=== PATIENT | male | born 1985 | race Two or more races ===

== ENCOUNTER 2021-08-24 20:12 | Inpatient (IN) | payer OTHER ==
[2021-08-24] MEDS ORDERED: MAG HYDROX/AL HYDROX/SIMETH 30 ML UNIT-DOSE CUP PO PRN (21:56)
[2021-08-24] MEDS ORDERED: MAGNESIUM HYDROX 2400MG/30ML ORAL SUSPENSION 30 ML CUP PO PRN (21:56)
[2021-08-24] MEDS ORDERED: MAGNESIUM CITRATE 300 ML BOTTLE PO PRN (21:56)
[2021-08-24] MEDS ORDERED: MENTHOL/PHENOL 1 EACH UD MM PRN (21:56)
[2021-08-24] MEDS ORDERED: BISMUTH SUBSALICYLATE 524 MG/30 ML PO PRN (21:56)
[2021-08-24] MEDS ORDERED: ACETAMINOPHEN 325 MG TABLET (FP) PO PRN (21:56)
[2021-08-24] MEDS ORDERED: diazePAM 5 MG TABLET PO PRN (21:59)
[2021-08-24 22:08] VITALS: BMI 29.7
[2021-08-24] MEDS ORDERED: diazePAM 5 MG TABLET ONE (22:19)
[2021-08-24] MEDS: diazePAM 5 MG TABLET PO SCH (22:20)
[2021-08-24] MEDS ORDERED: diazePAM 5 MG TABLET PO SCH (23:00)
[2021-08-24] MEDS: MELATONIN 5 MG TABLETS PO SCH (23:06)
[2021-08-24] MEDS: hydrOXYzine PAMOATE 25 MG CAPSULE (FP) PO PRN (23:06)
[2021-08-24] MEDS: THIAMINE HCL 100 MG TABLET (FP) PO SCH (23:07)
[2021-08-25] MEDS: diazePAM 5 MG TABLET PO PRN ×2 (01:43→14:19)
[2021-08-25] MEDS: ONDANSETRON *ODT* 4 MG TABLET SL PRN ×2 (01:44→22:42)
[2021-08-25] MEDS: METHOCARBAMOL 500 MG TABLET PO PRN ×3 (01:44→22:42)
[2021-08-25] MEDS: diazePAM 5 MG TABLET PO SCH ×4 (06:17→22:43)
[2021-08-25] MEDS: hydrOXYzine PAMOATE 25 MG CAPSULE (FP) PO PRN ×3 (06:17→22:39)
[2021-08-25] MEDS: PRENATAL VITAMINS W/ FOLIC ACID TABLET (FP) PO SCH (10:38)
[2021-08-25] MEDS: SERTRALINE HCL 50 MG TABLET (FP) PO SCH (10:39)
[2021-08-25] MEDS: ACETAMINOPHEN 325 MG TABLET (FP) PO PRN (14:14)
[2021-08-25 14:35] LABS: CALCIUM 9.2 mg/dL (8.5-10.1)
[2021-08-25 14:36] LABS: ALBUMIN 3.2 g/dl (3.4-5.0); BLOOD UREA NITROGEN 9.6 mg/dL (7-18); HEMATOCRIT 43.1 % (35.4-49); HEMOGLOBIN 14.9 GM/dL (11.7-16.9); MCH 29.3 pg (25.7-33.7); MCHC 34.6 g/dl (32.0-35.9); MEAN CELL VOLUME 84.8 fl (80-96); MEAN PLT VOLUME 9.2 fl (7.5-11.1); PLATELET COUNT 350 10^3/uL (134-434); RBC 5.08 M/mm3 (4.00-5.60); RDW 14.1 % (11.9-15.9); WHITE BLOOD COUNT 10.8 K/mm3 (4.0-10.0)
[2021-08-25 14:39] LABS: CREATININE 0.9 mg/dL (0.55-1.3)
[2021-08-25 14:41] LABS: BILIRUBIN,TOTAL 1.2 mg/dL (0.2-1); TOT PROT 7.6 g/dl (6.4-8.2)
[2021-08-25] MEDS: cloNIDine HCL 0.1 MG TABLET PO PRN ×2 (18:03→22:41)
[2021-08-25] MEDS: MELATONIN 5 MG TABLETS PO SCH (22:38)
[2021-08-25] MEDS: THIAMINE HCL 100 MG TABLET (FP) PO SCH (22:38)
[2021-08-25] MEDS: QUEtiapine FUMARATE 300 MG TABLET PO SCH (22:42)
[2021-08-26] MEDS ORDERED: diazePAM 5 MG TABLET PO SCH (06:00)
[2021-08-26] MEDS: diazePAM 5 MG TABLET PO SCH ×3 (06:07→22:20)
[2021-08-26] MEDS: METHOCARBAMOL 500 MG TABLET PO PRN ×2 (06:08→17:44)
[2021-08-26] MEDS: hydrOXYzine PAMOATE 25 MG CAPSULE (FP) PO PRN ×2 (06:08→17:44)
[2021-08-26] MEDS: cloNIDine HCL 0.1 MG TABLET PO PRN (10:52)
[2021-08-26] MEDS: diazePAM 5 MG TABLET PO PRN (10:53)
[2021-08-26] MEDS: IBUPROFEN 400 MG TABLET (FP) PO PRN ×2 (10:53→17:44)
[2021-08-26] MEDS: PRENATAL VITAMINS W/ FOLIC ACID TABLET (FP) PO SCH (10:55)
[2021-08-26] MEDS ORDERED: PANTOPRAZOLE 40 MG TABLET PO ONE (10:56)
[2021-08-26] MEDS: SERTRALINE HCL 50 MG TABLET (FP) PO SCH (11:28)
[2021-08-26] MEDS: QUEtiapine FUMARATE 300 MG TABLET PO SCH (22:20)
[2021-08-26] MEDS: MELATONIN 5 MG TABLETS PO SCH (22:20)
[2021-08-26] MEDS: THIAMINE HCL 100 MG TABLET (FP) PO SCH (22:20)
[2021-08-27] MEDS ORDERED: diazePAM 5 MG TABLET PO SCH (06:00)
[2021-08-27] MEDS: hydrOXYzine PAMOATE 25 MG CAPSULE (FP) PO PRN (06:49)
[2021-08-27] MEDS: diazePAM 5 MG TABLET PO SCH ×2 (06:49→17:03)
[2021-08-27] MEDS: diazePAM 5 MG TABLET PO PRN (10:35)
[2021-08-27] MEDS: SERTRALINE HCL 50 MG TABLET (FP) PO SCH (10:36)
[2021-08-27] MEDS: PRENATAL VITAMINS W/ FOLIC ACID TABLET (FP) PO SCH (10:36)
[2021-08-27] MEDS: PANTOPRAZOLE 40 MG TABLET PO SCH (10:36)
[2021-08-27] MEDS: ACETAMINOPHEN 325 MG TABLET (FP) PO PRN (10:37)
[2021-08-27 10:53] LABS: EOS % 3.7 % (0-4.5); HEMATOCRIT 43.2 % (35.4-49); HEMOGLOBIN 14.9 GM/dL (11.7-16.9); LYMPH % 30.1 % (8-40); MCH 29.9 pg (25.7-33.7); MCHC 34.6 g/dl (32.0-35.9); MEAN CELL VOLUME 86.4 fl (80-96); MEAN PLT VOLUME 9.3 fl (7.5-11.1); MONO % 5.5 % (3.8-10.2); NEUT % 59.7 % (42.8-82.8); PLATELET COUNT 291 10^3/uL (134-434); RDW 14.8 % (11.9-15.9); WHITE BLOOD COUNT 11.9 K/mm3 (4.0-10.0)
[2021-08-27] MEDS: IBUPROFEN 400 MG TABLET (FP) PO PRN (17:04)
[2021-08-27] MEDS: THIAMINE HCL 100 MG TABLET (FP) PO SCH (21:59)
[2021-08-27] MEDS: MELATONIN 5 MG TABLETS PO SCH (21:59)
[2021-08-27] MEDS: QUEtiapine FUMARATE 300 MG TABLET PO SCH (22:00)
[2021-08-28] MEDS ORDERED: diazePAM 5 MG TABLET PO ONE ×2 (06:00)
[2021-08-28 09:00] VITALS: BP 126/85; PULSE 112; TEMP 97.7
[2021-08-28] MEDS: PANTOPRAZOLE 40 MG TABLET PO SCH (09:46)
[2021-08-28] MEDS: SERTRALINE HCL 50 MG TABLET (FP) PO SCH (09:46)
[2021-08-28] MEDS: PRENATAL VITAMINS W/ FOLIC ACID TABLET (FP) PO SCH (09:46)
== END 2021-08-28 10:00 | disposition home or self-care (01) | DRG 775 ==
LOC: YASAS 20:12 → Y3N 22:07
PROVIDERS: ADMIT Allergy & Immunology; ATTEND Allergy & Immunology
PROC: HZ2ZZZZ Detoxification Services for Substance Abuse Treatment (ICD-10-PCS; principal; 2021-08-24)
DX: F10.230 Alcohol dependence with withdrawal, uncomplicated (principal); F10.282 Alcohol dependence with alcohol-induced sleep disorder; F19.24 Other psychoactive substance dependence with psychoactive substance-induced mood disorder; F32.9 Major depressive disorder, single episode, unspecified; E88.09 Other disorders of plasma-protein metabolism, not elsewhere classified; D72.829 Elevated white blood cell count, unspecified; E80.6 Other disorders of bilirubin metabolism; Z56.0 Unemployment, unspecified; Z91.5 Personal history of self-harm
CPT/HCPCS: 36415; 80053; 82247; 85025; 85027; 86780; 93005; 93010; C9803; J0735; Q0162; U0003; U0005